=== PATIENT | male | born 1975 | race Hispanic/Latino ===

== ENCOUNTER 2020-05-09 10:41 | Emergency (ER) | payer SELFPAY ==
[~2020-05-09] VITALS: Ht 157.5 cm; Wt 68.0 kg
[~2020-05-09 10:41] MED LIST: OMEPRAZOLE20 MG PO; OMEPRAZOLE40 MG PO; PRILOSEC40 MG PO
[2020-05-09 12:13] VITALS: BP 121/70
== END 2020-05-09 12:19 | disposition home or self-care (01) | DRG 605 ==
LOC: ED 10:41
DX: S80.02XA Contusion of left knee, initial encounter (principal); W01.0XXA Fall on same level from slipping, tripping and stumbling without subsequent striking against object, initial encounter; Y92.009 Unspecified place in unspecified non-institutional (private) residence as the place of occurrence of the external cause

== ENCOUNTER 2022-10-22 11:15 | Emergency (ER) | payer SELFPAY ==
[2022-10-22] VITALS (8 sets, daily range): BP systolic 110–132; BP diastolic 68–83
[~2022-10-22] VITALS: Ht 157.5 cm; Wt 74.0 kg
[2022-10-22] MEDS ORDERED: NAPROXEN500 MG PO (12:43)
== END 2022-10-22 13:03 | disposition home or self-care (01) | DRG 563 ==
LOC: ED 11:15
PROC: 2W3JX1Z Immobilization of Right Finger using Splint (ICD-10-PCS; principal; 2022-10-22)
DX: S62.634A Displaced fracture of distal phalanx of right ring finger, initial encounter for closed fracture (principal); W11.XXXA Fall on and from ladder, initial encounter